=== PATIENT | female | born 1960 | race Caucasian/White ===

== ENCOUNTER 2017-07-08 21:26 | Observation (INO) | payer MEDICAID, MEDICARE ==
[2017-07-08] MEDS ORDERED: LORazepam 2 MG/ML Syringe IM ONE (21:35)
[2017-07-08 22:27] LABS: CHLORIDE,CL 105 mEq/L (98-106); SODIUM,NA 141 mEq/L (136-145)
--- NOTE | 2017-07-08 23:02 | EDM.PDOC ---
ED HPI GENERAL MEDICAL PROBLEM - General Chief Complaint: Respiratory Problem Stated Complaint: "I THINK SHE IS HAVING A PANIC ATTACK" Time Seen by Provider: 07/08/17 21:35 Source of Information: Reports: Patient, Family ([id number]) History Limitations: Reports: Altered Mental Status, Intoxication - History of Present Illness INITIAL COMMENTS - FREE TEXT/NARRATIVE: Isabel is a 57 yo female brought into the ER by her daughter in law with concerns of a panic attack. Cande ([id number]) states she was suppose to go pick her up today from [facility] after undergoing a total knee replacement. She states they were over at her house around 6:30 this evening and she was in bed sleeping. She admits to the nurse that Isabel hasn't been herself and there is suspicion of drug use. States she has been having a lot of anxiety, sleeping a lot and hanging around questionable people the last year or so. States when they got back from [place] they found Isabel crying and what appeared to be having a panic attack. Isabel states she has been under a lot of stress lately with some remodeling being done in the house and trying to take care of everything while her has been laid up with his knee. She is concerned of finances as well. Admits she currently doesn't have a job and her is the only one working. Initially upon my arrival, Isabel was having an obvious panic attack. She appeared to be hyperventilating and trying to speak in a very fast paced manor. She was crying at this time as well. Isabel keeps complaining of numbness and tingling in her toes and hands. States she feels very shaky. Location: Reports: Generalized - Related Data Allergies Allergy/AdvReac Type Severity Reaction Status Date / Time No Known Allergies Allergy Verified 09/15/15 08:17 Home Meds: Home Meds Citalopram Hydrobromide [Celexa] 40 mg PO DAILY 07/28/15 [History] Cyclobenzaprine HCl 10 mg PO DAILY 07/28/15 [History] Meloxicam 7.5 mg PO DAILY 07/28/15 [History] Orphenadrine Citrate 100 mg PO BID 07/28/15 [History] Past Medical History HEENT History: Reports: None Cardiovascular History: Reports: None Respiratory History: Reports: None Gastrointestinal History: Reports: None Genitourinary History: Reports: None Musculoskeletal History: Reports: Back Pain, Chronic, Neck Pain, Chronic, Osteoporosis Neurological History: Reports: Migraines Psychiatric History: Reports: Anxiety, Depression Endocrine/Metabolic History: Reports: Osteopenia - Past Surgical History Neurological Surgical History: Reports: C-Spine, Lumbar Spine Musculoskeletal Surgical History: Reports: Other (See Below) (foot surgery) Social & Family History - Tobacco Use Smoking Status *Q: Current Every Day Smoker Tobacco Use Within Last Twelve Months: Cigarettes - Recreational Drug Use Drug Use in Last 12 Months: Yes Recreational Drug Type: Reports: Marijuana/Hashish - Living Situation & Occupation Living situation: Reports: , with Spouse Occupation: Unemployed ED ROS GENERAL - Review of Systems Review Of Systems: See Below Constitutional: Reports: Decreased Appetite, Weight Loss. Denies: Fever, Chills HEENT: Reports: Rhinitis Respiratory: Reports: Shortness of Breath Cardiovascular: Denies: Chest Pain, Syncope GI/Abdominal: Reports: No Symptoms : Reports: No Symptoms Musculoskeletal: Reports: Neck Pain, Back Pain Skin: Reports: No Symptoms Neurological: Reports: Tingling Psychiatric: Reports: Anxiety, Depression. Denies: Suicidal Ideation ED EXAM, GENERAL - Physical Exam Exam: See Below Exam Limited By: Altered Mental Status General Appearance: Anxious, Moderate Distress, Severe Distress Eye Exam: Bilateral Eye: EOMI, PERRL Ears: Normal External Exam, Normal Canal, Hearing Grossly Normal, Normal TMs Nose: Normal Inspection, No Blood, Clear Rhinorrhea Throat/Mouth: Normal Inspection, Normal Lips, Normal Voice, No Airway Compromise. No: Normal Teeth Head: Atraumatic, Normocephalic Neck: Normal Inspection, Supple Respiratory/Chest: No Respiratory Distress, Lungs Clear, Normal Breath Sounds, No Accessory Muscle Use Cardiovascular: Regular Rate, Rhythm, No Edema, No Murmur GI/Abdominal: Normal Bowel Sounds, Soft, No Organomegaly, No Distention, No Mass Neurological: Alert, Oriented, CN II-XII Intact, Normal Cognition (after Isabel was able to calm down), No Motor/Sensory Deficits Psychiatric: Anxious, Tearful Skin Exam: Warm, Dry, Intact, Normal Color, No Rash EKG INTERPRETATION EKG Date: 07/08/17 Rhythm: NSR Comparison: NA - No Prior EKG Course - Orders/Labs/Meds Orders: Active Orders 24 hr Category Date Time Status Patient Status Manage Transfer [TRANSFER] Routine ADT 07/08/17 22:34 Ordered Resuscitation Status Routine Resus Stat 07/08/17 22:37 Ordered Labs: Laboratory Tests 07/08/17 07/08/17 07/08/17 Range/Units 22:02 22:02 22:02 WBC 6.8 (5.0-10.0) 10^3/uL RBC 4.18 (4.00-5.50) 10^6/uL Hgb 12.5 (12.0-16.0) g/dL Hct 37.7 (37.0-47.0) % MCV 90.2 (82.0-94.0) fL MCH 29.9 (27.0-32.0) pg MCHC 33.2 (33.0-38.0) g/dL RDW Coeff of Moe 14.0 (11.0-15.0) % Plt Count 296 (150-400) 10^3/uL Neut % (Auto) 52.0 (35-85) % Lymph % (Auto) 38.7 (10-55) % [place] % (Auto) 7.7 (0-16) % Eos % (Auto) 1.3 (0-5) % Baso % (Auto) 0.3 (0-3) % Neut # (Auto) 3.52 (1.80-7.00) 10^3/uL Lymph # (Auto) 2.62 (1.00-4.80) 10^3/uL [place] # (Auto) 0.52 (0.00-0.80) 10^3/uL Eos # (Auto) 0.09 (0.00-0.45) 10^3/uL Baso # (Auto) 0.02 10^3/uL Sodium 141 (136-145) mEq/L Potassium 2.8 L* (3.5-5.0) mEq/L Chloride 105 (98-106) mEq/L Carbon Dioxide 21 (21-32) mmol/L BUN 11 (7-18) mg/dL Creatinine 0.7 (0.6-1.0) mg/dL Est Cr Clr Drug Dosing TNP Estimated GFR (MDRD) > 60 (>=60) mL/min Glucose 100 H (75-99) mg/dL Calcium 9.2 (8.4-10.1) mg/dL Magnesium 1.7 L (1.8-2.4) mg/dL Free T4 1.7 H (0.8-1.6) ng/dL TSH, Ultra Sensitive 1.45 (0.36-5.60) uIU/mL Urine Color Yellow (YELLOW) Urine Appearance Clear (CLEAR) Urine pH 6.5 (4.5-8.0) Ur Specific [place] 1.020 (1.003-1.020) Urine Protein Negative (NEGATIVE) mg/dL Urine Glucose (UA) Negative (NEGATIVE) mg/dL Urine Ketones 15 H (NEGATIVE) mg/dL Urine Occult Blood Negative (NEGATIVE) Urine Nitrite Negative (NEGATIVE) Urine Bilirubin Negative (NEGATIVE) Urine Urobilinogen 0.2 (0.2-1.0) EU/dL Ur Leukocyte Esterase Negative (NEGATIVE) Urine RBC Not seen (0-5) /HPF Urine WBC Not seen (0-5) /HPF Ur Squamous Epith Cells Occasional H (NOT SEEN) /HPF Urine Bacteria Occasional H (NOT SEEN) /HPF Urine Opiates Screen (NEGATIVE) Ur Oxycodone Screen (NEGATIVE) Urine Methadone Screen (NEGATIVE) Ur Barbiturates Screen (NEGATIVE) U Tricyclic Antidepress (NEGATIVE) Ur Phencyclidine Scrn (NEGATIVE) Ur Amphetamine Screen (NEGATIVE) U Methamphetamines Scrn (NEGATIVE) Urine MDMA Screen (NEGATIVE) U Benzodiazepines Scrn (NEGATIVE) Urine Cocaine Screen (NEGATIVE) U Marijuana (THC) Screen (NEGATIVE) 07/08/17 Range/Units 22:02 WBC (5.0-10.0) 10^3/uL RBC (4.00-5.50) 10^6/uL Hgb (12.0-16.0) g/dL Hct (37.0-47.0) % MCV (82.0-94.0) fL MCH (27.0-32.0) pg MCHC (33.0-38.0) g/dL RDW Coeff of Moe (11.0-15.0) % Plt Count (150-400) 10^3/uL Neut % (Auto) (35-85) % Lymph % (Auto) (10-55) % [place] % (Auto) (0-16) % Eos % (Auto) (0-5) % Baso % (Auto) (0-3) % Neut # (Auto) (1.80-7.00) 10^3/uL Lymph # (Auto) (1.00-4.80) 10^3/uL [place] # (Auto) (0.00-0.80) 10^3/uL Eos # (Auto) (0.00-0.45) 10^3/uL Baso # (Auto) 10^3/uL Sodium (136-145) mEq/L Potassium (3.5-5.0) mEq/L Chloride (98-106) mEq/L Carbon Dioxide (21-32) mmol/L BUN (7-18) mg/dL Creatinine (0.6-1.0) mg/dL Est Cr Clr Drug Dosing Estimated GFR (MDRD) (>=60) mL/min Glucose (75-99) mg/dL Calcium (8.4-10.1) mg/dL Magnesium (1.8-2.4) mg/dL Free T4 (0.8-1.6) ng/dL TSH, Ultra Sensitive (0.36-5.60) uIU/mL Urine Color (YELLOW) Urine Appearance (CLEAR) Urine pH (4.5-8.0) Ur Specific [place] (1.003-1.020) Urine Protein (NEGATIVE) mg/dL Urine Glucose (UA) (NEGATIVE) mg/dL Urine Ketones (NEGATIVE) mg/dL Urine Occult Blood (NEGATIVE) Urine Nitrite (NEGATIVE) Urine Bilirubin (NEGATIVE) Urine Urobilinogen (0.2-1.0) EU/dL Ur Leukocyte Esterase (NEGATIVE) Urine RBC (0-5) /HPF Urine WBC (0-5) /HPF Ur Squamous Epith Cells (NOT SEEN) /HPF Urine Bacteria (NOT SEEN) /HPF Urine Opiates Screen Negative (NEGATIVE) Ur Oxycodone Screen Negative (NEGATIVE) Urine Methadone Screen Negative (NEGATIVE) Ur Barbiturates Screen Negative (NEGATIVE) U Tricyclic Antidepress Negative (NEGATIVE) Ur Phencyclidine Scrn Negative (NEGATIVE) Ur Amphetamine Screen Positive H (NEGATIVE) U Methamphetamines Scrn Positive H (NEGATIVE) Urine MDMA Screen Negative (NEGATIVE) U Benzodiazepines Scrn Negative (NEGATIVE) Urine Cocaine Screen Negative (NEGATIVE) U Marijuana (THC) Screen Positive H (NEGATIVE) Meds: Medications Discontinued Medications Generic Name Dose Route Start Last Admin Trade Name Freq PRN Reason Stop Dose Admin Lorazepam 1 mg 07/08/17 21:35 07/08/17 21:49 Ativan IM 07/08/17 21:36 1 mg ONETIME ONE Administration - Re-Assessments/Exams Free Text/Narrative Re-Assessment/Exam: 07/08/17 22:16 Initially, Isabel was given 1 mg of Ativan IM as she was having an obvious panic attack. We were able to get her to calm down with reassurance. Concerns of drug intoxication, we proceeded with urine drug screen. Drug screen was positive for methamphetamines, THC and amphetamines. Potassium was low at 2.8 as well along with mildly low magnesium at 1.7. Isabel was doing well in the ER after calming down. Departure - Departure Time of Disposition: 22:40 Disposition: Refer to Observation Clinical Impression: Acute hypokalemia, Panic attack Drug intoxication Qualifiers: Complication of substance-induced condition: uncomplicated Qualified Code(s): F19.920 - Other psychoactive substance use, unspecified with intoxication, uncomplicated - Discharge Information Referrals: Alan Awad MD [Primary Care Provider] - - Problem List & Annotations (1) Acute hypokalemia SNOMED Code(s): 32803468 Code(s): E87.6 - HYPOKALEMIA Status: Acute Current Visit: Yes (2) Drug intoxication SNOMED Code(s): 5071163 Code(s): F19.929 - OTH PSYCHOACTIVE SUBSTANCE USE, UNSP WITH INTOXICATION, UNSP Status: Acute Current Visit: Yes Qualifiers: Complication of substance-induced condition: uncomplicated Qualified Code(s ): F19.920 - Other psychoactive substance use, unspecified with intoxication, uncomplicated (3) Panic attack SNOMED Code(s): 833208674 Code(s): F41.0 - PANIC DISORDER [EPISODIC PAROXYSMAL ANXIETY] Status: Acute Current Visit: Yes - Problem List Review Problem List Initiated/Reviewed/Updated: Yes - My Orders Last 24 Hours: My Active Orders 07/08/17 22:34 Patient Status Manage Transfer [TRANSFER] Routine 07/08/17 22:37 Resuscitation Status Routine - Assessment/Plan Admission H&P: Please use this note as an admission H&P Last 24 Hours: My Active Orders 07/08/17 22:34 Patient Status Manage Transfer [TRANSFER] Routine 07/08/17 22:37 Resuscitation Status Routine Plan: I have not discussed with Isabel concerns of drug screen results as I feel is the initial cause of her anxiety/panic attack. Discussed admission with Isabel carlos , which she completely understands and is in agreement. We will closely monitor breanna. Will discuss with Dr. Ritesh Hall's current situation and will address the drug use concerns in the am.
[2017-07-08] MEDS ORDERED: Magnesium Sulfate (4.06 MEQ/ML) 1 GM/2 ML SDV IM ONE (23:11)
[2017-07-09] MEDS ORDERED: Enoxaparin 30 MG/0.3 ML Syringe SUBCUT SCH (00:16)
[2017-07-09] MEDS ORDERED: Ibuprofen 200 MG Tab PO PRN (00:16)
[2017-07-09] MEDS ORDERED: Acetaminophen 325 MG Tab PO PRN (00:16)
[2017-07-09] MEDS ORDERED: Ondansetron 4 MG/2 ML SDV IV PRN (00:16)
[2017-07-09] MEDS ORDERED: LORazepam 2 MG/ML Syringe IVPUSH PRN (00:16)
[2017-07-09] MEDS: Fluticasone Propionate Nasal Spray 16 GM Bottle NASBOTH SCH ×2 (00:43→10:15)
[2017-07-09] MEDS ORDERED: Sodium Chloride 0.45% with KCl 1,000 ML IV SCH (00:45)
[2017-07-09 07:15] LABS: CHLORIDE,CL 108 mEq/L (98-106); SODIUM,NA 141 mEq/L (136-145)
[2017-07-09 16:43] VITALS: BP 122/65
--- NOTE | 2017-07-10 09:35 | DISCH ---
HOSPITAL COURSE: Isabel Berkowitz came in with anxiety attack last night, also hypokalemic, so she was given potassium. She was given some IV Ativan, which did settle her down. Urine was positive for amphetamines, methamphetamine, and marijuana, which she admitted to. I did spend at least 15 minutes talking to her about addiction, whether she wanted help, she said she does not use very often, does not need help. CBC looked normal. Again, potassium was low. T4 was a little bit elevated at 1.7. TSH was normal. Magnesium little bit low at 1.7. DISPOSITION: The patient now discharged home. I will see her back in the clinic in 1 week. Repeat her potassium, magnesium, T4, and TSH. DISCHARGE MEDICATIONS: Home medications. DISCHARGE DIAGNOSIS: ANXIETY AND DEPRESSIVE DISORDER. MONI /[id number]
--- NOTE | 2017-07-10 09:35 | PN ---
DATE: 07/09/2017 S: Isabel Berkowitz was brought in with acute anxiety attack last night, and hypokalemic, question etiology. She was admitted to the hospital, and given some IV Ativan. This morning, she is still quite lethargic. Potassium is up to 3.3. O: NECK: Supple. CHEST: Clear. CARDIAC: Sounds are good. ASSESSMENT: 1. ANXIETY ATTACK. 2. URINE POSITIVE FOR METHAMPHETAMINE AND MARIJUANA. P: We will discuss the addiction potential with her this afternoon. MARLO/GARRISON /[id number]
== END 2017-07-09 16:23 | disposition home or self-care (01) ==
LOC: CC.ED 21:26 → CC.MS 22:37 → UNDOADMOB 22:40
PROVIDERS: ADMIT Physician Assistant Medical; ATTEND General Practice
DX: F41.0 Panic disorder [episodic paroxysmal anxiety] (principal); F32.9 Major depressive disorder, single episode, unspecified; F19.929 Other psychoactive substance use, unspecified with intoxication, unspecified; E87.6 Hypokalemia; G43.909 Migraine, unspecified, not intractable, without status migrainosus; F17.210 Nicotine dependence, cigarettes, uncomplicated; Z79.899 Other long term (current) drug therapy
CPT/HCPCS: 36415; 80048; 80305; 81001; 83735; 84439; 84443; 85025; 93005; 94761; 96374; 99283; A9270-GY; J1650; J2060; J3475; J3480

== ENCOUNTER 2019-12-24 12:23 | Emergency (ER) | payer MEDICARE, OTHER ==
[2019-12-24 13:13] VITALS: PULSE 70
[2019-12-24 13:19] LABS: CHLORIDE,CL 106 mEq/L (98-106); SODIUM,NA 141 mEq/L (136-145)
[2019-12-24 13:40] LABS: PTT,PARTIAL THROMBOPLSTIN TIME 22.8 SEC (23.2-32.3)
[2019-12-24 15:43] VITALS: BP 130/64
[2019-12-24] MEDS ORDERED: Ketorolac 30 MG/ML SDV IVPUSH ONE (15:51)
--- NOTE | 2019-12-24 16:28 | EDM.PDOC ---
ED HPI GENERAL MEDICAL PROBLEM - General Chief Complaint: General Stated Complaint: let sided weakness Time Seen by Provider: 12/24/19 13:00 Source of Information: Reports: Patient History Limitations: Reports: No Limitations - History of Present Illness INITIAL COMMENTS - FREE TEXT/NARRATIVE: Isabel is a 59 yo female with PMH of osteopenia, depression, and vitamin D deficiency, who presents to the ED with c/o left sided weakness. Onset was 9 days ago. She reports she was scared to come to the ED and her has been caring for her at home. She reports on afternoon of 12/15/2019 she had episode where it "felt like a lightning bolt went through her body." She reports that since that time she had had left sided weakness and has fallen many times. She does report headache at time of presentation and has visible ecchymosis to left forehead. She reports that her finally called their son today and told him his mom's symptoms and they forced her to present to the ED. She denies any chest pain, heart palpitations, shortness of breath, N/V/D, cough, abdominal pain, urinary symptoms. NIH 12. Patient with flaccid LUE, left sided neglect, left facial droop. Has no history of hyperlipidemia, atrial fibrillation, or hypertension. Is a daily smoker. Has been on HRT since hysterectomy in 2016. Onset Date: 12/15/19 Duration: Constant Location: Reports: Upper Extremity, Left, Lower Extremity, Left Associated Symptoms: Reports: Weakness. Denies: Confusion, Chest Pain, Cough, cough w sputum, Diaphoresis, Fever/Chills, Headaches, Loss of Appetite, Malaise, Nausea/Vomiting, Rash, Seizure, Shortness of Breath, Syncope - Related Data Allergies Allergy/AdvReac Type Severity Reaction Status Date / Time No Known Allergies Allergy Verified 12/24/19 12:42 Home Meds: Home Meds Cyclobenzaprine HCl 10 mg PO BEDTIME PRN 07/28/15 [History] estradioL [Estradiol] 1 mg PO DAILY 07/09/17 [History] traMADol HCl [Tramadol HCl] 50 mg PO Q6H PRN 07/09/17 [History] Alendronate Sodium 70 mg PO Q7D 06/27/18 [History] Calcium Carbonate [Calcium] 600 mg PO BID 06/27/18 [History] Cholecalciferol (Vitamin D3) [Vitamin D3] 5,000 unit PO DAILY 06/27/18 [History] DULoxetine HCl [Duloxetine HCl] 30 mg PO BID 06/27/18 [History] Gabapentin [Neurontin] 300 mg PO TID 06/27/18 [History] Magnesium 250 mg PO DAILY 06/27/18 [History] Multivitamin [Daily Multiple Vitamin] 1 each PO DAILY 06/27/18 [History] Pantoprazole Sodium 40 mg PO DAILY 06/27/18 [History] Past Medical History HEENT History: Reports: None Cardiovascular History: Reports: None Respiratory History: Reports: None Gastrointestinal History: Reports: None Genitourinary History: Reports: None Musculoskeletal History: Reports: Back Pain, Chronic, Neck Pain, Chronic, Osteoporosis Neurological History: Reports: Migraines Psychiatric History: Reports: Anxiety, Depression Endocrine/Metabolic History: Reports: Osteopenia - Past Surgical History Neurological Surgical History: Reports: C-Spine, Lumbar Spine Musculoskeletal Surgical History: Reports: Other (See Below) Other Musculoskeletal Surgeries/Procedures:: foot surgery Social & Family History - Tobacco Use Tobacco Use Status *Q: Current Every Day Tobacco User Years of Tobacco use: 40 Packs/Tins Daily: 0.5 - Caffeine Use Caffeine Use: Reports: Energy Drinks - Recreational Drug Use Recreational Drug Use: Yes Drug Use in Last 12 Months: Yes Recreational Drug Type: Reports: Marijuana/Hashish - Living Situation & Occupation Living situation: Reports: , with Spouse Occupation: Unemployed ED ROS GENERAL - Review of Systems Review Of Systems: Comprehensive ROS is negative, except as noted in HPI. ED EXAM, GENERAL - Physical Exam Exam: See Below Exam Limited By: No Limitations General Appearance: Alert, WD/WN, No Apparent Distress Eye Exam: Bilateral Eye: PERRL Nose: Normal Inspection, Normal Mucosa, No Blood Throat/Mouth: Normal Oropharynx, Other (no teeth, slurred speech) Head: Normocephalic, Other (ecchymosis left forehead) Neck: Normal Inspection, Supple, Non-Tender, Full Range of Motion Respiratory/Chest: No Respiratory Distress, Lungs Clear, Normal Breath Sounds, No Accessory Muscle Use, Chest Non-Tender Cardiovascular: Normal Peripheral Pulses, Regular Rate, Rhythm, No Edema, No Gallop, No JVD, No Murmur, No Rub Peripheral Pulses: 2+: Radial (L), Radial (R), Posterior Tibial (L), Posterior Tibial (R), Dorsalis Pedis (L), Dorsalis Pedis (R) GI/Abdominal: Normal Bowel Sounds, Soft, Non-Tender, No Organomegaly, No Distention, No Abnormal Bruit, No Mass Back Exam: Normal Inspection, Full Range of Motion, NT Extremities: Normal Inspection, Non-Tender, No Pedal Edema, Normal Capillary Refill, Other (flaccid LUE, 4/5 strength to LLE, left leg tiago with ambulation) Neurological: Alert, Oriented, Normal Cognition, Abnormal Gait, Sensory/Motor Deficit (LUE Flaccid 0/5, LLE 4/5, left facial droop, left sided neglect). No: Confused, Disoriented Psychiatric: Tearful Skin Exam: Ecchymosis Course - Vital Signs Last Recorded V/S: Last Vital Signs Temp 97.9 F 12/24/19 15:30 Pulse 70 12/24/19 15:30 Resp 16 12/24/19 15:30 BP 130/64 12/24/19 15:30 Pulse Ox 98 12/24/19 15:30 - Orders/Labs/Meds Orders: Active Orders 24 hr Category Date Time Status Brain wo Cont [MR] Stat Exams 12/24/19 12:55 Taken Labs: Laboratory Tests 12/24/19 12/24/19 12/24/19 Range/Units 12:54 12:54 12:54 WBC 7.7 (5.0-10.0) 10^3/uL RBC 4.44 (4.00-5.50) 10^6/uL Hgb 13.9 (12.0-16.0) g/dL Hct 41.5 (37.0-47.0) % MCV 93.5 (82.0-94.0) fL MCH 31.3 (27.0-32.0) pg MCHC 33.5 (33.0-38.0) g/dL RDW Coeff of Moe 13.3 (11.0-15.0) % Plt Count 359 (150-400) 10^3/uL Neut % (Auto) 79.2 (35-85) % Lymph % (Auto) 14.1 (10-55) % Norton % (Auto) 5.7 (0-16) % Eos % (Auto) 0.9 (0-5) % Baso % (Auto) 0.1 (0-3) % Neut # (Auto) 6.06 (1.80-7.00) 10^3/uL Lymph # (Auto) 1.08 (1.00-4.80) 10^3/uL Norton # (Auto) 0.44 (0.00-0.80) 10^3/uL Eos # (Auto) 0.07 (0.00-0.45) 10^3/uL Baso # (Auto) 0.01 10^3/uL PT 9.9 (9.7-12.3) SEC INR 0.98 (0.92-1.18) APTT 22.8 L (23.2-32.3) SEC Sodium 141 (136-145) mEq/L Potassium 4.3 (3.5-5.0) mEq/L Chloride 106 (98-106) mEq/L Carbon Dioxide 28 (21-32) mmol/L BUN 12 (7-18) mg/dL Creatinine 0.8 (0.6-1.0) mg/dL Est Cr Clr Drug Dosing 69.81 mL/min Estimated GFR (MDRD) > 60 (>=60) mL/min Glucose 96 (75-99) mg/dL Calcium 8.7 (8.4-10.1) mg/dL Total Bilirubin 0.4 (0.0-1.0) mg/dL AST 16 (15-37) U/L ALT 19 (12-78) U/L Alkaline Phosphatase 65 (46-116) U/L Troponin I < 0.017 (0.00-0.06) ng/mL Total Protein 7.2 (6.4-8.2) g/dL Albumin 3.5 (3.4-5.0) g/dL Urine Color (YELLOW) Urine Appearance (CLEAR) Urine pH (4.5-8.0) Ur Specific Desmet (1.003-1.020) Urine Protein (NEGATIVE) mg/dL Urine Glucose (UA) (NEGATIVE) mg/dL Urine Ketones (NEGATIVE) mg/dL Urine Occult Blood (NEGATIVE) Urine Nitrite (NEGATIVE) Urine Bilirubin (NEGATIVE) Urine Urobilinogen (0.2-1.0) EU/dL Ur Leukocyte Esterase (NEGATIVE) Urine Opiates Screen (NEGATIVE) Ur Oxycodone Screen (NEGATIVE) Urine Methadone Screen (NEGATIVE) Ur Barbiturates Screen (NEGATIVE) U Tricyclic Antidepress (NEGATIVE) Ur Phencyclidine Scrn (NEGATIVE) Ur Amphetamine Screen (NEGATIVE) U Methamphetamines Scrn (NEGATIVE) Urine MDMA Screen (NEGATIVE) U Benzodiazepines Scrn (NEGATIVE) Urine Cocaine Screen (NEGATIVE) U Marijuana (THC) Screen (NEGATIVE) SARS CoV-2 RNA Rapid NEREYDA (NEGATIVE) 12/24/19 12/24/19 12/24/19 Range/Units 12:56 14:34 14:35 WBC (5.0-10.0) 10^3/uL RBC (4.00-5.50) 10^6/uL Hgb (12.0-16.0) g/dL Hct (37.0-47.0) % MCV (82.0-94.0) fL MCH (27.0-32.0) pg MCHC (33.0-38.0) g/dL RDW Coeff of Moe (11.0-15.0) % Plt Count (150-400) 10^3/uL Neut % (Auto) (35-85) % Lymph % (Auto) (10-55) % Norton % (Auto) (0-16) % Eos % (Auto) (0-5) % Baso % (Auto) (0-3) % Neut # (Auto) (1.80-7.00) 10^3/uL Lymph # (Auto) (1.00-4.80) 10^3/uL Norton # (Auto) (0.00-0.80) 10^3/uL Eos # (Auto) (0.00-0.45) 10^3/uL Baso # (Auto) 10^3/uL PT (9.7-12.3) SEC INR (0.92-1.18) APTT (23.2-32.3) SEC Sodium (136-145) mEq/L Potassium (3.5-5.0) mEq/L Chloride (98-106) mEq/L Carbon Dioxide (21-32) mmol/L BUN (7-18) mg/dL Creatinine (0.6-1.0) mg/dL Est Cr Clr Drug Dosing mL/min Estimated GFR (MDRD) (>=60) mL/min Glucose (75-99) mg/dL Calcium (8.4-10.1) mg/dL Total Bilirubin (0.0-1.0) mg/dL AST (15-37) U/L ALT (12-78) U/L Alkaline Phosphatase (46-116) U/L Troponin I (0.00-0.06) ng/mL Total Protein (6.4-8.2) g/dL Albumin (3.4-5.0) g/dL Urine Color Yellow (YELLOW) Urine Appearance Clear (CLEAR) Urine pH 8.5 H (4.5-8.0) Ur Specific Desmet 1.020 (1.003-1.020) Urine Protein Negative (NEGATIVE) mg/dL Urine Glucose (UA) Negative (NEGATIVE) mg/dL Urine Ketones Negative (NEGATIVE) mg/dL Urine Occult Blood Negative (NEGATIVE) Urine Nitrite Negative (NEGATIVE) Urine Bilirubin Negative (NEGATIVE) Urine Urobilinogen 0.2 (0.2-1.0) EU/dL Ur Leukocyte Esterase Negative (NEGATIVE) Urine Opiates Screen Negative (NEGATIVE) Ur Oxycodone Screen Negative (NEGATIVE) Urine Methadone Screen Negative (NEGATIVE) Ur Barbiturates Screen Negative (NEGATIVE) U Tricyclic Antidepress Positive H (NEGATIVE) Ur Phencyclidine Scrn Negative (NEGATIVE) Ur Amphetamine Screen Negative (NEGATIVE) U Methamphetamines Scrn Negative (NEGATIVE) Urine MDMA Screen Negative (NEGATIVE) U Benzodiazepines Scrn Negative (NEGATIVE) Urine Cocaine Screen Negative (NEGATIVE) U Marijuana (THC) Screen Positive H (NEGATIVE) SARS CoV-2 RNA Rapid NEREYDA Negative (NEGATIVE) Meds: Medications Discontinued Medications Generic Name Dose Route Start Last Admin Trade Name Frida PRN Reason Stop Dose Admin Ketorolac Tromethamine 30 mg 12/24/19 15:51 12/24/19 15:57 Toradol IVPUSH 12/24/19 15:52 30 mg ONETIME ONE Administration - Re-Assessments/Exams Free Text/Narrative Re-Assessment/Exam: 12/24/19 14:24 MRI reveals moderate-large acute right MCA infarct involving right basal ganglia and right frontal and temporal lobes. Some edema with partial effacement of the right lateral ventricle 12/24/19 15:30 Called [facility] and placed on hold. 12/24/19 16:14 Attempted to reach [facility] again. She is paging neuro. 12/24/19 16:[address] Thompson. No intervention available given time frame from onset of symptoms. Waiting to discuss case with hospitalist. 12/24/19 16:[address] Gabbie Escudero who accepted the patient for transfer. Patient will be transferred via [facility] to [facility]. Risks and benefits of transfer discussed with patient. Risks of transfer include worsening of condition, , and MVA enroute. Benefits of transfer include higher level of care with neurology and speech, occupational, and physical therapy. Risks of nontransfer include no specialized care and no speech or occupational therapy, worsening of condition, . Benefits of nontransfer include convenience. Patient verbalized understanding and was agreeable to transfer. Departure - Departure Time of Disposition: 16:41 Disposition: DC/Tfer to [facility] Condition: Poor Clinical Impression: CVA, Cerebrovascular accident - Discharge Information *PRESCRIPTION DRUG MONITORING PROGRAM REVIEWED*: Not Applicable *COPY OF PRESCRIPTION DRUG MONITORING REPORT IN PATIENT OMAIRA: Not Applicable Referrals: Angela Gilman DENITRATOR [Primary Care Provider] - Sepsis Event Note (ED) - Evaluation Sepsis Screening Result: No Definite Risk - Focused Exam Vital Signs: Vital Signs Temp Pulse Resp BP Pulse Ox 12/24/19 15:30 97.9 F 70 16 130/64 98 12/24/19 12:48 98 F 70 18 129/75 97 - Problem List & Annotations (1) CVA, Cerebrovascular accident SNOMED Code(s): 996251463 Code(s): I63.9 - CEREBRAL INFARCTION, UNSPECIFIED Status: Acute Current Visit: Yes - Problem List Review Problem List Initiated/Reviewed/Updated: Yes - My Orders Last 24 Hours: My Active Orders 12/24/19 12:55 Brain wo Cont [MR] Stat - Assessment/Plan Last 24 Hours: My Active Orders 12/24/19 12:55 Brain wo Cont [MR] Stat Assessment:: Right MCA CVA Plan: 59 yo female presents with onset of CVA symptoms 9 days ago. Patient with left sided neglect, LUE flaccidity, and left facial droop. NIH 12 throughout ED stay. Patient is not candidate for TPA given time frame since onset of symptoms. Lab work unremarkable. VSS on RA. Covid negative. Given time frame from onset of symptoms and obvious CVA, opted to proceed with MRI brain. MRI reveals large acute right MCA infarct with surrounding edema. Consulted with Dr. Thompson who relays there is no available intervention given time from onset of symptoms. Stroke has completed at this time. Consulted with Dr. Gabbie Escudero, hospitalist who accepted patient for transfer. Patient will be transferred via EMS to [facility] for ongoing workup and rehab. Patient discharged from facility in satisfactory condition.
== END 2019-12-24 17:30 ==
LOC: CC.ED 12:23
DX: I63.9 Cerebral infarction, unspecified (principal); F17.210 Nicotine dependence, cigarettes, uncomplicated; Z79.899 Other long term (current) drug therapy; Z20.828 Contact with and (suspected) exposure to other viral communicable diseases
CPT/HCPCS: 36415; 70551; 80053; 80305-QW; 81003; 84484; 85025; 85610; 85730; 93005; 96374; 99285-25; J1885; U0002

== ENCOUNTER → 2020-02-17 | Day surgery (SDC) | payer MEDICARE, OTHER ==
[~2020-02-17] MED LIST: Lidocaine 1% 30 ML SDV ONE
[2020-02-17 16:40] VITALS: BP 115/70; PULSE 66
== END ==
LOC: CC.SDS 10:09
PROVIDERS: ATTEND Family Medicine
DX: I83.811 Varicose veins of right lower extremity with pain (principal); I87.2 Venous insufficiency (chronic) (peripheral); F41.9 Anxiety disorder, unspecified; F17.210 Nicotine dependence, cigarettes, uncomplicated; F32.9 Major depressive disorder, single episode, unspecified; K21.9 Gastro-esophageal reflux disease without esophagitis; Z01.812 Encounter for preprocedural laboratory examination; Z20.828 Contact with and (suspected) exposure to other viral communicable diseases; Z79.899 Other long term (current) drug therapy; Z98.890 Other specified postprocedural states
CPT/HCPCS: 36475; A4216; U0002

== ENCOUNTER → 2020-02-22 | Day surgery (SDC) | payer MEDICARE, OTHER ==
[2020-02-22 17:25] VITALS: BP 110/65; PULSE 80
== END ==
LOC: CC.SDS 11:23
PROVIDERS: ATTEND Family Medicine
DX: I83.812 Varicose veins of left lower extremity with pain (principal); I87.2 Venous insufficiency (chronic) (peripheral); F41.9 Anxiety disorder, unspecified; F32.9 Major depressive disorder, single episode, unspecified; F17.210 Nicotine dependence, cigarettes, uncomplicated; K21.9 Gastro-esophageal reflux disease without esophagitis; Z79.899 Other long term (current) drug therapy; Z98.890 Other specified postprocedural states
CPT/HCPCS: A4216